=== PATIENT | female | born 1935 | race Caucasian/White ===

== ENCOUNTER 2020-12-01 11:22 | Emergency (ER) | payer OTHER ==
--- OUTSIDE RECORDS SUMMARY | 2020-12-01 11:25 | XMS REPORT | Continuity of Care Document ---
:1935 Author Organization [facility] t Address [address] [place] [address] Care Team Providers Name Role Phone Unavailable Unavailable Unavailable Payers Payer Name Policy Type Policy Number Effective Date Expiration Date S ource Problems This patient has no known problems. Allergies, Adverse Reactions, Alerts Allergy Allergy Status Severity Reaction(s) Onset Inactive Treating Comm ents Source Name Type Date Date Clinician indometh DA [facility] nitro[facility] antoin 10-03 [place] 00[facility] [place] [facility] [place] [facility] [place] [facility] [place] [facility] Medications This patient has no known medications. Procedures This patient has no known procedures. Results Test Description Test Time Test Comments Results Result [facility] e Comments - DUP VEIN UNI/LTD 2018-10-25 Patient Name: 13:26:00 DEREK SKY Unit No: [id number] EXAMS: CPT CODE: [id number] DUP VEIN UNI/LTD 19263 FINDINGS: Right lower extremity grayscale and Doppler venous ultrasound demonstrates normal flow and luminal compressibility without evidence of intraluminal thrombus. IMPRESSION: No evidence of DVT within deep venous structures of the right lower extremity. at 1326 Reported and signed by: Eloy Machado M.D. CC: Eulalio Lopez M.D. Technologist: DIGNA MUÑOZ RDMS, RVT Transcribed D/ (3144) Nacho [facility] NAME: DEREK SKY [address] [facility] PHYS: Eulalio Robles MD : 1935 AGE: 83 SEX: F [place] [address] LOC: Jeb.RAD PHONE #: [phone] EXAM DATE: 10/25/2018 STATUS: REG CLI FAX #: [phone] RAD #: [id number] D/C DT PAGE 1 Signed Report Patient Name: DEREK SKY Unit No: [id number] EXAMS: CPT CODE: [id number] DUP VEIN UNI/LTD [id number] <Continued> Orig Print D/T: S: 10/25/2018 (7128) [facility] NAME: DEREK SKY [address] [facility] PHYS: Eulalio Robles MD : 1935 AGE: 83 SEX: F [place] [address] LOC: Y.RAD PHONE #: [phone] EXAM DATE: 10/25/2018 STATUS: REG CLI FAX #: [phone] RAD #: [id number] D/C DT PAGE 2 Signed Report BASIC METABOLIC PANEL 2018-10-16 06:18:00 Test Item Value Reference Range Interpretation Comme nts SODIUM (test code = NA) 141 mmol/L 136-145 N POTASSIUM (test code = K) 5.1 mmol/L 3.5-5.1 N CHLORIDE (test code = CL) 106.0 mmol/L 98-107 N CARBON DIOXIDE (test code = 25.5 mmol/L 21-32 N CO2) GLUCOSE (test code = GLU) 105 mg/dL 70-110 N BLOOD UREA NITROGEN (test code 34 mg/dL 7-18 H = BUN) GLOMERULAR FILTRATION RATE 36.1 >60 U nit of measure: (test code = GFR) mL/min/1.7 3 [id number] Range:Healthy A dults >90 mL/min/1.73 m2 For Chronic Kidney Disease: Stage II Mi ld Decrease in GFR 60-9 0 Stage III Moderate Decrease in GFR 30-59 Stage IV Severe Decrease in GFR 15-29 Stage V Kidney Failure <15 CREATININE (test code = CREAT) 1.40 mg/dL 0.55-1.30 H CALCIUM (test code = CA) 7.6 mg/dL 8.2-10.1 L HGB [id number] 05:44:00 Test Item Value Reference Range Interpretation Comments HEMOGLOBIN (test code = HGB) 9.5 g/dL 12-16 L HEMATOCRIT (test code = HCT) 30.7 % 37-47 L
[2020-12-01] MEDS ORDERED: NA CHLORIDE 0.9% 500 ML ONE (12:14)
[2020-12-01] MEDS ORDERED: ONDANSETRON 4 MG/2 ML VIAL ONE (12:14)
[2020-12-01] MEDS ORDERED: MORPHINE 4 MG/ML SYR ONE (12:14)
[2020-12-01 12:22] LABS: Basophils % 0.4 % (0-1.3); Hematocrit 38.5 % (36.0-45.0); Lymphocytes % 13.7 % (15.3-44.8); RBC Red Blood Cell Count 4.47 M/uL (3.86-4.86)
[2020-12-01 12:35] LABS: Albumin 3.6 g/dL (3.4-5.0); Bilirubin Direct 0.2 mg/dL (0-0.2); Bilirubin Total 0.6 mg/dL (0.2-1.0); Potassium 3.4 mmol/L (3.5-5.1); Protein, Total 7.5 g/dL (6.4-8.2)
--- NOTE | 2020-12-01 13:30 | RAD REPORT ---
EXAM DESCRIPTION: CT - Abdomen Pelvis W Contrast - 12/01/2020 1:09 pm CLINICAL HISTORY: Constipation;Abd pain COMPARISON: No comparisons TECHNIQUE: Biphasic, helical CT imaging of the abdomen and pelvis was performed following 100 ml non -ionic IV contrast. No oral contrast administered. All CT scans are performed using dose optimization technique as appropriate and may include automated exposure control or mA/KV adjustment according to patient size. FINDINGS: No acute pleural or parenchymal process. No pericardial effusion. The liver, spleen, and pancreas show no suspicious findings. Cholecystectomy clips are present. No bi liary tree abnormal dilatation. Symmetric renal function is seen with no hydronephrosis or suspicious renal mass. No pyelonephritis o r acute parenchymal process. No bladder abnormalities. No adrenal abnormalities. Uterus is absent. Ov rocio are absent or atrophic. No adnexal mass. Gastric surgical changes are present. There is a small hiatal hernia present. No wall thickening, mas s or edema at the bypass anastomotic sites of the stomach or small bowel. Small bowel loops are not d ilated. Patient does have an umbilical hernia that contains a small bowel loop. No bowel wall thicken ing or edema at this site. Patient has a very tortuous and redundant sigmoid colon that extends to th e anterior midline uppermost abdomen. Additionally, there is an internal hernia that involves the sig moid colon. Air and stool are present in the rectum. Colon is distended but not dilated proximal to t he internal hernia. There is no colon wall thickening or edema. No free air, free fluid or inflammatory stranding. No hernia, mass or bulky lymphadenopathy. Disc and bony degenerative changes are present. Dense arterial tree calcifications are present. IMPRESSION: Internal hernia is present involving the sigmoid colon. Proximal to the herniation the s igmoid is distended but not dilated as well as quite tortuous and redundant reaching the anterior mid line upper abdomen. Colon flores are not thickened or edematous. Periumbilical hernia containing a loop of small bowel. No bowel wall thickening or edema. There is no free air or surgically emergent finding.
--- NOTE | 2020-12-01 14:35 | ER ---
Nurse's Notes [facility] Name: Maile Galeano Age: 85 yrs Sex: Female : 1935 Arrival Date: 12/01/2020 Time: 11:27 Bed 13 Private MD: Diagnosis: Constipation, unspecified;Unspecified abdominal pain Presentation: 12/01 11:45 Chief complaint: Patient states: Lower abd pain with nausea since Monday. Watery ll1 diarrhea since taking Miralax. No fever or dysuria. Coronavirus screen: Client denies travel out of the [place] in the last 14 days. At this time, the client does not indicate any symptoms associated with coronavirus-19. Ebola Screen: Patient denies travel to an Ebola-affected area in the 21 days before illness onset. Initial Sepsis Screen: Does the patient meet any 2 criteria? No. Patient's initial sepsis screen is negative. Does the patient have a suspected source of infection? Yes: Acute abdominal pain. Risk Assessment: Do you want to hurt yourself or someone else? Patient reports no desire to harm self or others. Onset of symptoms was November 28, 2020. 11:45 Method Of Arrival: Ambulatory ll1 11:45 Acuity: CINDY 3 ll1 Historical: - Allergies: 11:53 PENICILLINS; ll1 11:53 Sporanox; ll1 11:53 antibiotic-cant remember name; ll1 - PMHx: 11:53 Hypertension; GERD; restless legs; ll1 - PSHx: 11:53 Appendectomy; Cholecystectomy; Gastric Bypass; ll1 - Immunization history:: Client reports receiving the 2nd dose of the Covid vaccine, Flu vaccine is up to date. - Social history:: Smoking status: Patient/guardian denies using tobacco, the patient reports quitting approximately 20 years ago. Screenin:18 Abuse screen: Denies threats or abuse. Nutritional screening: No deficits noted. vg1 Tuberculosis screening: No symptoms or risk factors identified. Fall Risk No fall in past 12 months (0 pts). No secondary diagnosis (0 pts). IV access (20 points). Ambulatory Aid- None/Bed Rest/Nurse Assist (0 pts). Gait- Normal/Bed Rest/Wheelchair (0 pts) Mental Status- Oriented to own ability (0 pts). Total Aguilar Fall Scale indicates No Risk (0-24 pts). Assessment: 12:15 General: Appears in no apparent distress. comfortable, Behavior is calm, cooperative. vg1 Pain: Complains of pain in abdomen Pain currently is 3 out of 10 on a pain scale. at worst was 10 out of 10 on a pain scale. Pain began Monday11/28/20 Alleviated by rest, Aggravated by increased activity. Neuro: Level of Consciousness is awake, alert, obeys commands, Oriented to person, place, time. Cardiovascular: Patient's skin is warm and dry. Respiratory: Airway is patent Respiratory effort is even, unlabored. GI: Bowel sounds present X 4 quads. Abd is soft X 4 quads Abdomen is tender to palpation X 4 quads. Mass noted in epigastric area Reports constipation, diarrhea, nausea. : No signs and/or symptoms were reported regarding the genitourinary system. EENT: No signs and/or symptoms were reported regarding the EENT system. Derm: Skin is pink, warm \T\ dry. Musculoskeletal: Circulation, motion, and sensation intact. 13:17 Reassessment: Patient appears in no apparent distress at this time. No changes from vg1 previously documented assessment. Patient and/or family updated on plan of care and expected duration. Pain level reassessed. Patient is alert, oriented x 3, equal unlabored respirations, skin warm/dry/pink. 14:25 Reassessment: Patient appears in no apparent distress at this time. Patient and/or vg1 family updated on plan of care and expected duration. Pain level reassessed. Patient is alert, oriented x 3, equal unlabored respirations, skin warm/dry/pink. Vital Signs: 11:45 BP 131 / 65; Pulse 70; Resp 17; Temp 98.2; Pulse Ox 100% ; Weight 87.54 kg; Height 5 ll1 ft. 5 in. (165.10 cm); Pain 8/10; 12:17 BP 120 / 103; Pulse 60; Resp 16; Pulse Ox 100% on R/A; vg1 13:14 BP 133 / 71; Pulse 64; Resp 16; Pulse Ox 100% on R/A; vg1 14:25 BP 134 / 66; Pulse 63; Resp 16; Pulse Ox 100% on R/A; vg1 11:45 Body Mass Index 32.12 (87.54 kg, 165.10 cm) ll1 ED Course: 11:27 Patient arrived in ED. ds1 11:38 aKl Mtz NP is PHCP. pm1 11:38 Guanaco Edwards MD is Attending Physician. pm1 11:48 Triage completed. ll1 11:49 Arm band placed on Patient placed in an exam room, on a stretcher. ll1 12:09 Shruti Mcgill, RN is Primary Nurse. vg1 12:18 Patient has correct armband on for positive identification. Bed in low position. Call vg1 light in reach. Side rails up X2. 13:[address] via stretcher. vg1 13:10 CT Abd/Pelvis - IV Contrast Only In Process Unspecified. EDMS 13:14 Patient moved back from CT. vg1 14:48 No provider procedures requiring assistance completed. IV discontinued, intact, vg1 bleeding controlled, No redness/swelling at site. Pressure dressing applied. Administered Medications: 12:18 Drug: NS 0.9% 500 ml Route: IV; Rate: bolus; Site: left antecubital; vg1 13:00 Follow up: IV Status: Completed infusion vg1 12:19 Drug: Zofran (Ondansetron) 4 mg Route: IVP; Site: left antecubital; vg1 14:17 Follow up: Response: No adverse reaction vg1 12:19 Not Given (Patient Refused): morphine 4 mg IVP once; RASS on ADMIN: Combtv4, Very vg1 Agttd3, Agttd2, Rstlss1, AlertClm0, Drwsy-1, Lt Sdtn-2, Mod Sdtn-3, Dp Sdtn-4, UnArsble-5 14:49 Drug: Bentyl 20 mg Route: PO; vg1 14:49 Follow up: Response: Medication administered at discharge. vg1 Outcome: 14:34 Discharge ordered by MD. pm1 14:48 Discharged to home via wheelchair. vg1 14:48 Condition: stable 14:48 Discharge instructions given to patient, Instructed on discharge instructions, follow up and referral plans. medication usage, Demonstrated understanding of instructions, follow-up care, medications, Prescriptions given X 2. 14:48 Patient left the ED. vg1 Signatures: Dispatcher [employer] EDTX RehmanDunia ramirez ds1 Kal Mtz, BLAKE EVALUATION ASSISTANT pm1 Shruti Mcgill, RN RN vg1 Facundo Larsen, RN RN ll1
--- NOTE | 2020-12-01 14:35 | EDPHYS ---
Physician Documentation [facility] Name: Maile Galeano Age: 85 yrs Sex: Female : 1935 Arrival Date: 12/01/2020 Time: 11:27 Bed 13 Private MD: ED Physician Guanaco Edwards HPI: 12/01 12:03 This 85 yrs old Female presents to ER via Ambulatory with complaints of pm1 Constipation. 12:03 The patient presents with abdominal pain and constipation. Onset: The symptoms/episode pm1 began/occurred 2 day(s) ago. The symptoms do not radiate. Associated signs and symptoms: Pertinent negatives: nausea and vomiting, chest pain, dysuria, fever, shortness of breath. The symptoms are described as crampy, bloating. Modifying factors: The symptoms are alleviated by nothing, the symptoms are aggravated by movement. Severity of pain: in the emergency department the pain is actually worse. The patient has not recently seen a physician, contacted PCP by phone and recommended ER evaluation . Patient usually has BM daily. Started taking Miralax and reports watery diarrhea as a result. Historical: - Allergies: 11:53 PENICILLINS; ll1 11:53 Sporanox; ll1 11:53 antibiotic-cant remember name; ll1 - PMHx: 11:53 Hypertension; GERD; restless legs; ll1 - PSHx: 11:53 Appendectomy; Cholecystectomy; Gastric Bypass; ll1 - Immunization history:: Client reports receiving the 2nd dose of the Covid vaccine, Flu vaccine is up to date. - Social history:: Smoking status: Patient/guardian denies using tobacco, the patient reports quitting approximately 20 years ago. ROS: 12:03 Constitutional: Negative for fever, chills, and weight loss, Cardiovascular: Negative pm1 for chest pain, palpitations, and edema, Respiratory: Negative for shortness of breath, cough, wheezing, and pleuritic chest pain. 12:03 Back: Negative for injury and pain, MS/Extremity: Negative for injury and deformity, Skin: Negative for injury, rash, and discoloration, Neuro: Negative for headache, weakness, numbness, tingling, and seizure. 12:03 Abdomen/GI: Positive for abdominal pain, constipation, abdominal cramps, Negative for nausea and vomiting. Exam: 12:03 Constitutional: This is a well developed, well nourished patient who is awake, alert, pm1 and in no acute distress. Head/Face: Normocephalic, atraumatic. 12:03 Back: No spinal tenderness. No costovertebral tenderness. Full range of motion. Skin: Warm, dry with normal turgor. Normal color with no rashes, no lesions, and no evidence of cellulitis. MS/ Extremity: Pulses equal, no cyanosis. Neurovascular intact. Full, normal range of motion. 12:03 Cardiovascular: Exam negative for acute changes, Rate: normal, Rhythm: regular, Pulses: no pulse deficits are appreciated. 12:03 Respiratory: Exam negative for acute changes, respiratory distress, shortness of breath. 12:03 Abdomen/GI: Inspection: obese Palpation: soft, in all quadrants, mild abdominal tenderness, in the upper mid abdomen, Hernia: noted in the umbilical area, incarceration, is not appreciated, tenderness, is not appreciated. 12:03 Neuro: Exam negative for acute changes, Orientation: is normal, Mentation: is normal, Motor: moves all fours. Vital Signs: 11:45 BP 131 / 65; Pulse 70; Resp 17; Temp 98.2; Pulse Ox 100% ; Weight 87.54 kg; Height 5 ll1 ft. 5 in. (165.10 cm); Pain 8/10; 12:17 BP 120 / 103; Pulse 60; Resp 16; Pulse Ox 100% on R/A; vg1 13:14 BP 133 / 71; Pulse 64; Resp 16; Pulse Ox 100% on R/A; vg1 14:25 BP 134 / 66; Pulse 63; Resp 16; Pulse Ox 100% on R/A; vg1 11:45 Body Mass Index 32.12 (87.54 kg, 165.10 cm) ll1 MDM: 11:39 Patient medically screened. pm1 14:33 Data reviewed: vital signs. Data interpreted: Pulse oximetry: on room air is 100 %. pm1 Interpretation: normal. Counseling: I had a detailed discussion with the patient and/or guardian regarding: the historical points, exam findings, and any diagnostic results supporting the discharge/admit diagnosis, lab results, radiology results, the need for outpatient follow up, for definitive care, a general surgeon, a director of broadcast, to return to the emergency department if symptoms worsen or persist or if there are any questions or concerns that arise at home. 12/01 11:46 Order name: Basic Metabolic Panel pm1 12/01 11:46 Order name: CBC with Diff pm1 12/01 11:46 Order name: Hepatic Function; Complete Time: 13:54 pm1 12/01 11:46 Order name: Lipase; Complete Time: 13:54 pm1 12/01 11:47 Order name: Basic Metabolic Panel; Complete Time: 13:54 EDMS 12/01 11:47 Order name: CBC with Automated Diff; Complete Time: 13:54 EDMS 12/01 11:46 Order name: IV Saline Lock; Complete Time: 12:19 pm1 12/01 11:46 Order name: Labs collected and sent; Complete Time: 12:19 pm1 12/01 11:46 Order name: CT Abd/Pelvis - IV Contrast Only; Complete Time: 13:54 pm1 Administered Medications: 12:18 Drug: NS 0.9% 500 ml Route: IV; Rate: bolus; Site: left antecubital; vg1 13:00 Follow up: IV Status: Completed infusion vg1 12:19 Drug: Zofran (Ondansetron) 4 mg Route: IVP; Site: left antecubital; vg1 14:17 Follow up: Response: No adverse reaction vg1 12:19 Not Given (Patient Refused): morphine 4 mg IVP once; RASS on ADMIN: Combtv4, Very vg1 Agttd3, Agttd2, Rstlss1, AlertClm0, Drwsy-1, Lt Sdtn-2, Mod Sdtn-3, Dp Sdtn-4, UnArsble-5 14:49 Drug: Bentyl 20 mg Route: PO; vg1 14:49 Follow up: Response: Medication administered at discharge. vg1 Disposition: 15:50 Co-signature as Attending Physician, Guanaco Edwards MD. rn Disposition: 12/01/20 14:34 Discharged to Home. Impression: Constipation, unspecified, Unspecified abdominal pain. - Condition is Stable. - Discharge Instructions: Abdominal Pain, Adult, Constipation, Adult, Hernia, Adult. - Prescriptions for Bentyl 20 mg Oral Tablet - take 1 tablet by ORAL route every 6 hours As needed; 20 tablet. Lactulose 10 gram/15 mL Oral Solution - take 30 milliliter by ORAL route once daily; 300 milliliter. - Medication Reconciliation Form, Thank You Letter, Antibiotic Education, Prescription Opioid Use form. - Follow up: Emergency Department; When: As needed; Reason: Worsening of condition. Follow up: Private Physician; When: 2 - 3 days; Reason: Recheck today's complaints, Continuance of care, Re-evaluation by your physician. - Problem is new. - Symptoms have improved. Signatures: Dispatcher [employer] EDMS Guanaco Edwards MD MD rn Marinas, Patrick, NP ELECTROCARDIOGRAPHIC TECHNICIAN pm1 Shruti Mcgill RN RN vg1 Facundo Larsen RN RN ll1 Corrections: (The following items were deleted from the chart) 14:48 14:34 12/01/2020 14:34 Discharged to Home. Impression: Constipation, unspecified; vg1 Unspecified abdominal pain. Condition is Stable. Forms are Medication Reconciliation Form, Thank You Letter, Antibiotic Education, Prescription Opioid Use. Follow up: Emergency Department; When: As needed; Reason: Worsening of condition. Follow up: Private Physician; When: 2 - 3 days; Reason: Recheck today's complaints, Continuance of care, Re-evaluation by your physician. Problem is new. Symptoms have improved. pm1
[2020-12-01] MEDS ORDERED: DICYCLOMINE HCL 10 MG CAP ONE (15:04)
[2020-12-01 15:15] VITALS: TEMP 98.2; O2SAT 100
[2020-12-01 15:19] VITALS: BP 134/66
== END 2020-12-01 14:48 | disposition home or self-care (01) ==
LOC: ER 11:22
DX: K59.00 Constipation, unspecified (principal); I10 Essential (primary) hypertension; Z88.1 Allergy status to other antibiotic agents; Z88.8 Allergy status to other drugs, medicaments and biological substances; Z98.84 Bariatric surgery status
CPT/HCPCS: 96361; 85025; 80048; 36415; 80076; 83690; 74177; 96374; 99284; J7040; J2405